=== PATIENT | female | born 1980 | race Caucasian/White ===

== ENCOUNTER 2018-07-16 10:49 | Emergency (ER) | payer BC, SELFPAY ==
[2018-07-16 10:50] VITALS: BP 158/84; PULSE 74; RESP 18; TEMP 36.6; O2SAT 100; BMI 24.2
--- NOTE | 2018-07-16 11:29 | CT_ITS ---
STUDY: CT BRAIN WITHOUT CONTRAST REASON FOR EXAM: Female, 38 years old. Lightheadedness. Near syncope. RADIATION DOSAGE (If Supplied By Facility): CTDIvol = ( 44.99 ) mGy, DLP = ( 745.49 ) mGycm TECHNIQUE: Transaxial CT imaging of the brain was performed without administration of intravenous contrast material. Individualized dose optimization techniques were used for this CT. COMPARISON: None. FINDINGS: Normal soft tissue structures. Normal calvarium. Normal size ventricles and extra-axial spaces for the patient's age. Normal white matter tracts of the cerebral hemispheres. Normal basal ganglia and thalami. Normal brainstem. Normal cerebellum. There is no intracranial hemorrhage. There are no findings of an acute ischemic infarction. Normal visualized paranasal sinuses. CT/Brain/Head without Contrast IMPRESSION: Normal unenhanced CT scan of the brain. Electronically Signed: Rober Norman MD at 13:31 EST Tel [phone], Service support ,
--- NOTE | 2018-07-16 11:29 | EKG12_ITS ---
Test Reason : DIZZINESS Blood Pressure : / mmHG Vent. Rate : 066 BPM Atrial Rate : 066 BPM P-R Int : 132 ms QRS Dur : 090 ms QT Int : 394 ms P-R-T Axes : 042 016 027 degrees QTc Int : 413 ms Normal sinus rhythm Normal ECG Confirmed by JUANCARLOS ANDERSON MD ([id number]), proposal editor GASPER QUEZADA ([id number] on 07/20/2018 2:32:31 PM Referred By: [email or web address] Confirmed By:JUANCARLOS ANDERSON MD
--- NOTE | 2018-07-16 11:31 | ED.VISSUMM ---
- ER Visit Summary Date of Service: 07/16/18 Chief Complaint: Lightheadedness and near syncope History of Present Illness: The patient is a 38 F no significant past medical history. Patient states the last 6 months she is just not felt well. He is currently working her up and she had a positive SUNI and a positive Rocco-Ordaz but she is has not seen infectious disease specialist yet. Denies any significant past medical history. States today she had some nausea and felt like she was spinning and lightheaded and that she might pass out. Denies any chest pain. No shortness of breath. No palpitations. No vomiting, diarrhea or. No fever. No dysuria. She said she has not had symptoms like this. She has had no recent admission. Physical Examination: Well-appearing female. Vital signs are stable afebrile. Her blood pressure is 158/84 heart rate 74 and pulse ox 100%. She does not look septic or toxic. No distress. HEENT exam normal. Pupils round reactive light. Moist weeks membranes. No facial droop. Normal speech. No signs of trauma. Neck nontender no lymphadenopathy. Lungs clear to auscultation bilaterally. Heart regular rate and rhythm no murmur. Abdomen soft nontender. Normal bowel sounds no peritoneal signs. Strength is moves all 4. Neurovascular intact. 5 out of 5 motor strength. Dorsi and plantar flexion intact. NIH is 0. Fingertip to nose and heel to ahumada within normal limits. Back nontender. Skin unremarkable. No rashes. Test Results: CBC normal. BMP normal. Normal creatinine and gap. EKG normal. Sinus rhythm rate of 66 no acute signs of [place] or ischemia. No dysrhythmia. CT of her brain showed no acute abnormality read by the radiologist and reviewed by me. Emergency Department Course and Treatment: Patient has a normal physical exam. Treatment Plan: Repeat exam patient is doing well at 1340. Exam is unchanged. I discussed all test results with her and her and her female friend at bedside. She will follow-up with her workup is in progress. Disposition: Discharge Impression: Near syncope of uncertain etiology This note was generated with Dr. Zation software. It may contain incorrect words, spelling, and punctuation that were not noted in review of the chart prior to signing ED Disposition - Plan for ED Patient: Chief Complaint: Dizziness Referrals: Florin Gongora DO [Primary Care Provider] -
--- NOTE | 2018-07-16 11:34 | ED.DCSUM_ITS ---
- ER Visit Summary Date of Service: 07/16/18 Chief Complaint: Lightheadedness and near syncope History of Present Illness: The patient is a 38 F no significant past medical history. Patient states the last 6 months she is just not felt well. He is currently working her up and she had a positive SUNI and a positive Rocco-Ordaz but she is has not seen infectious disease specialist yet. Denies any significant past medical history. States today she had some nausea and felt like she was spinning and lightheaded and that she might pass out. Denies any chest pain. No shortness of breath. No palpitations. No vomiting, diarrhea or. No fever. No dysuria. She said she has not had symptoms like this. She has had no recent admission. Physical Examination: Well-appearing female. Vital signs are stable afebrile. Her blood pressure is 158/84 heart rate 74 and pulse ox 100%. She does not look septic or toxic. No distress. HEENT exam normal. Pupils round reactive light. Moist weeks membranes. No facial droop. Normal speech. No signs of trauma. Neck nontender no lymphadenopathy. Lungs clear to auscultation bilaterally. Heart regular rate and rhythm no murmur. Abdomen soft nontender. Normal bowel sounds no peritoneal signs. Strength is moves all 4. Neurovascular intact. 5 out of 5 motor strength. Dorsi and plantar flexion intact. NIH is 0. Fingertip to nose and heel to ahumada within normal limits. Back nontender. Skin unremarkable. No rashes. Test Results: CBC normal. BMP normal. Normal creatinine and gap. EKG normal. Sinus rhythm rate of 66 no acute signs of [place] or ischemia. No dysrhythmia. CT of her brain showed no acute abnormality read by the radiologist and reviewed by me. Emergency Department Course and Treatment: Patient has a normal physical exam. Treatment Plan: Repeat exam patient is doing well at 1340. Exam is unchanged. I discussed all test results with her and her and her female friend at bedside. She will follow-up with her workup is in progress. Disposition: Discharge Impression: Near syncope of uncertain etiology This note was generated with On[employer]ation software. It may contain incorrect words, spelling, and punctuation that were not noted in review of the chart prior to signing ED Disposition - Plan for ED Patient: Chief Complaint: Dizziness Referrals: Florin Gongora DO [Primary Care Provider] -
[2018-07-16 12:02] LABS: Absolute Lymphocyte Count 1.69 X10^3/ul (0.83-4.51); Absolute Neutrophil Count 4.6 X10^3/uL (2.0-7.7); Basophil# 0.01 X10^3/uL; Basophil% 0.1 % (0-1); Eosinophil# 0.03 X10^3/uL; Eosinophils% 0.4 % (0-5); Hematocrit 41.7 % (37-47); Hemoglobin 13.6 g/dl (12.0-15.0); Lymphocyte # 1.69 X10^3/ul (4.0); Lymphocyte % 24.6 % (19-41); Mean Corp Hgb Conc 32.6 g/gl (32-36); Mean Corpuscular Hgb 29.7 pg (27.0-32.0); Monocyte# 0.51 X10^3/uL; Monocyte% 7.4 % (0-10); Neutrophil # 4.62 X10^3/uL (2.7-7.7); Neutrophil % 67.5 % (47-70); Platelet Count 171 K/mm3 (150-450); RBC Distribution Width CV 12.4 % (11.6-14.6); RBC Distribution Width SD 41.4 fl (35.1-43.9); Red Blood Count 4.58 M/mm3 (4.2-5.4); White Blood Count 6.9 K/mm3 (4.4-11.0)
[2018-07-16 12:08] LABS: POSITIVE COUNT NO; POSITIVE DIFFERENTIAL NO; POSITIVE MORPHOLOGY NO
[2018-07-16 12:12] LABS: Anion Gap 8 (5-15); BUN 17 mg/dL (7-18); BUN/Creat Ratio 20.5 RATIO (10-20); Calcium,Total 8.9 mg/dL (8.5-10.1); Chloride 107 mmol/L (98-107); Creatinine, Serum 0.83 mg/dL (0.55-1.02); EST Glomerular Filtration Rate 82 mL/min (>60); Est Glom Filt Rate - Afr Amer 100 mL/min (>60); Estimated Creatinine Clearance 87.72 ml/min; Glucose 84 mg/dL (74-106); Potassium 4.2 mmol/L (3.5-5.1); Sodium Level 142 mmol/L (136-145)
[2018-07-16 13:24] VITALS: BP 121/86; BP 128/93; BP 141/84; PULSE 69; PULSE 70; PULSE 82
[2018-07-16 13:39] VITALS: BP 129/80; PULSE 77; RESP 16; O2SAT 97
--- NOTE | 2018-07-16 13:49 | ED.DEP ---
ED Disposition - Plan for ED Patient: Disposition: Home or Assisted Living Chief Complaint: Dizziness Instructions: ED Near Syncope Unkn Referrals: Florin Gongora DO [Primary Care Provider] - As Needed Additional Instructions: Follow-up with your outpatient workup.
[2018-07-16 14:05] VITALS: BP 134/86; PULSE 74; RESP 13; O2SAT 98
== END 2018-07-16 14:11 | disposition home or self-care (01) ==
PROVIDERS: Emergency Provider Emergency Medicine; Family Provider Student in an Organized Health Care Education/Training Program; PCP Student in an Organized Health Care Education/Training Program
DX: R55 Syncope and collapse (principal)
CPT/HCPCS: 70450; 80048; 85025; 93005; 99285; A4216

== ENCOUNTER → 2018-10-08 12:15 | Outpatient (CLI) | payer BC, SELFPAY ==
[2018-07-30 11:42] VITALS: BMI 24.2
--- NOTE | 2018-10-08 12:23 | RAD_ITS ---
STUDY: X-RAY - CERVICAL SPINE REASON FOR EXAM: Female, 38 years old. Increasing neck pain TECHNIQUE: 6 view(s) of the cervical spine were obtained. COMPARISON: None FINDINGS: There are small spurs from the posterior inferior corners of C4 and C5 above the disc spaces are well maintained and there is normal alignment and curvature of the spine. There are no acute fractures. The prevertebral soft tissues are normal. The intervertebral foramen are all patent. RAD/Cerv Spine 4 or 5 Views IMPRESSION: The study is normal except for small spurs from the posterior inferior corners of C4-C5. All. The intervertebral foramina are patent Electronically Signed: Yfn Romero MD at 4:07 EST Tel , Service support ,
== END ==
PROVIDERS: Family Provider Student in an Organized Health Care Education/Training Program; PCP Student in an Organized Health Care Education/Training Program; Referring Provider Internal Medicine; Visit Provider Internal Medicine
DX: M54.2 Cervicalgia (principal)
CPT/HCPCS: 72050

== ENCOUNTER → 2018-10-15 16:13 | Outpatient (CLI) | payer BC, SELFPAY ==
[2018-07-30 11:42] VITALS: BMI 24.2
--- NOTE | 2018-10-15 16:22 | MRI_ITS ---
STUDY: MRI THORACIC SPINE WITHOUT CONTRAST REASON FOR EXAM: Female, 38 years old. Chronic back pain. TECHNIQUE: Standardized fat and water weighted pulse sequences were obtained in the sagittal and axial planes. COMPARISON: None. FINDINGS: Normal kyphosis of the thoracic spine. There is no substantial scoliosis. T2-3: Small, central, noncompressive disc protrusion. T5-6: Small, central, noncompressive disc protrusion. Remaining levels show no evidence of disc protrusion or canal stenosis. T1-2, T2-3, T3-4, T4-5, T5-6, T6-7, T7-8, T8-9, T9-10, T10-11, T11-12: Normal endplates. Normal disc hydration, heights and morphology of the corresponding intervertebral discs. Normal intervertebral neural foramina at the corresponding levels. Normal visualized thoracic cord. Normal conus medullaris that terminates at the T12 level.. The soft tissue structures are unremarkable. MRI/Spine Thoracic (Routine) IMPRESSION: Noncompressive disc protrusions at T2-3 and T5-6, otherwise negative study. Electronically Signed: Andreia Dixon MD at 22:39 EST Tel , Service support ,
== END ==
PROVIDERS: Family Provider Internal Medicine; PCP Internal Medicine; Referring Provider Internal Medicine; Visit Provider Internal Medicine
DX: M54.6 Pain in thoracic spine (principal)
CPT/HCPCS: 72146

== ENCOUNTER → 2018-12-01 | Outpatient (CLI) | payer BC, SELFPAY ==
[2018-07-30 11:42] VITALS: BMI 24.2
--- NOTE | 2018-12-01 17:50 | CT_ITS ---
STUDY: CT ABDOMEN AND PELVIS WITH CONTRAST REASON FOR EXAM: Female, 38 years old. Upper abdominal pain x10 months, lower abdominal pain x3 months RADIATION DOSAGE (If Supplied By Facility): CTDIvol = ( 13.65 ) mGy, DLP = ( 555.64 ) mGycm TECHNIQUE: Transaxial images were obtained from the dome of the diaphragm to the symphysis pubis with oral contrast. 100mL IV/Oral Isovue 300 was administered. Sagittal and coronal images were reconstructed. Individualized dose optimization techniques were used for this CT. COMPARISON: None. FINDINGS: The visualized lung bases are unremarkable. The visualized portions of the heart are within normal limits. Normal liver. Normal gallbladder and extrahepatic biliary system. Normal spleen. Normal pancreas. Normal bilateral adrenal glands. Normal right kidney. Normal left kidney. There is a large amount of food in the stomach. Normal small intestine. Normal colon. The appendix is visualized and appears normal. Normal abdominal aorta. Normal inferior vena cava. Normal retroperitoneum. Normal urinary bladder. Uterus and ovaries appear normal. There is a small umbilical hernia containing fat. Normal osseous structures. CT/Abdomen/Pelvis WITH Contrast IMPRESSION: Small fat-containing umbilical hernia. The study is otherwise unremarkable. There is no evidence of free intra-abdominal or intrapelvic air, fluid, or inflammatory process. Electronically Signed: Carrington Dong MD at 17:43 EDT , Service support ,
== END | disposition home or self-care (01) ==
LOC: CT 17:46
PROVIDERS: Family Provider Internal Medicine; PCP Internal Medicine; Referring Provider Internal Medicine; Visit Provider Internal Medicine
DX: R10.84 Generalized abdominal pain (principal)
CPT/HCPCS: 74177; Q9967

== ENCOUNTER → 2018-12-11 | Outpatient (CLI) | payer BC, SELFPAY ==
[2018-07-30 11:42] VITALS: BMI 24.2
--- NOTE | 2018-12-11 08:54 | NM_ITS ---
CLINICAL: 38-year-old female with reported history of abdominal pain. SEMI-SOLID PHASE 99m Tc SULFUR COLLOID GASTRIC EMPTYING STUDY COMPARISON: CT of the abdomen-pelvis report 12/01/2018 FINDINGS: The patient was administered 1.0 mCi of 99m Tc sulfur colloid mixed with oatmeal and consumed per os. Image acquisitions in the anterior-posterior projections for a total of 60 minutes. There is prompt visualization of the stomach. There is no gastroesophageal reflux identified. The T1/2 linear fit was calculated to be 33.9 minutes, (Normal: 12-56 minutes). NM/Gastric Emptying Study IMPRESSION: 1. NORMAL 99m Tc sulfur colloid semi-solid phase (oatmeal) gastric emptying imaging examination. A. There is normal and preserved semi-solid phase gastric emptying compared to normal controls with maintained first order kinetics throughout all components of the examination. (Sylvain et al, J Nucl Med Tech 38: 186, 2010). Electronically Signed: Fracisco Zheng DO at 22:50 EDT Tel , Service support ,
== END | disposition home or self-care (01) ==
LOC: NM 08:51
PROVIDERS: Family Provider Internal Medicine; PCP Internal Medicine; Referring Provider Internal Medicine; Visit Provider Internal Medicine
DX: R10.13 Epigastric pain (principal)
CPT/HCPCS: 78264; A9541

== ENCOUNTER → 2019-01-15 | Outpatient (CLI) | payer BC, SELFPAY ==
[2018-07-30 11:42] VITALS: BMI 24.2
--- NOTE | 2019-01-15 16:02 | RAD_ITS ---
STUDY: X-RAY - LUMBAR SPINE REASON FOR EXAM: Female, 38 years old. History of recent fall. TECHNIQUE: 5 view(s) of the lumbar spine were obtained. COMPARISON: None FINDINGS: Normal lumbar lordosis. There is no substantial scoliosis. There is a normal alignment of the vertebrae. Normal vertebral bodies and endplates. Normal disc space heights. There is no demonstrated fracture. There is no demonstrated spondylolysis of the pars interarticulares. The soft tissue structures are unremarkable. RAD/L/S Spine Min 4 Views IMPRESSION: No demonstrated acute fracture. If symptoms persist, CT scan the pelvis might be of further value. Electronically Signed: James Peacock MD at 14:40 EDT Tel , Service support ,
== END | disposition home or self-care (01) ==
LOC: MTRAD 16:00
PROVIDERS: Family Provider Internal Medicine; PCP Internal Medicine; Referring Provider Internal Medicine; Visit Provider Internal Medicine
DX: M54.5 Low back pain (principal); W19.XXXA Unspecified fall, initial encounter
CPT/HCPCS: 72110

== ENCOUNTER → 2019-01-25 | Outpatient (CLI) | payer BC, SELFPAY ==
[2018-07-30 11:42] VITALS: BMI 24.2
--- NOTE | 2019-01-25 10:35 | RAD_ITS ---
STUDY: X-RAY - SACRUM/COCCYX REASON FOR EXAM: Female, 38 years old. Fall. Tailbone pain. TECHNIQUE: 3 view(s) of the sacrum and coccyx were obtained. COMPARISON: None. FINDINGS: Normal bilateral sacroiliac joints. Normal visualized sacral ala and fused sacral bodies. Normal sacrococcygeal junction with a normal angulation. Normal coccygeal segments. The presacral soft tissue structures are unremarkable. RAD/Sacrum-Coccyx min 2 Views IMPRESSION: No evidence of definitive acute fracture or dislocation. Electronically Signed: Jamel Hernadez DO at 23:17 EDT , Service support ,
== END | disposition home or self-care (01) ==
LOC: HPRAD 10:33
PROVIDERS: Family Provider Internal Medicine; PCP Internal Medicine; Referring Provider Internal Medicine; Visit Provider Internal Medicine
DX: M53.3 Sacrococcygeal disorders, not elsewhere classified (principal)
CPT/HCPCS: 72220

== ENCOUNTER → 2019-01-27 | Outpatient (CLI) | payer BC, SELFPAY ==
[2018-07-30 11:42] VITALS: BMI 24.2
--- NOTE | 2019-01-27 06:58 | CT_ITS ---
STUDY: CT PELVIS WITHOUT CONTRAST REASON FOR EXAM: Female, 38 years old. Coccygeal pain following a fall. RADIATION DOSAGE (If Supplied By Facility): CTDIvol = ( 12.62 ) mGy, DLP = ( 365.60 ) mGycm TECHNIQUE: Transaxial imaging of the pelvis was performed with oral contrast, and without intravenous administration of contrast material. Multiplanar coronal and sagittal images were reformatted. Individualized dose optimization techniques were used for this CT. COMPARISON: None. FINDINGS: Normal urinary bladder. Normal visualized small intestine. Normal visualized colon. There is no pelvic fluid. There is no pelvic mass lesion or lymphadenopathy. Normal visualized pelvic arteries. Small umbilical hernia containing fat. Partial sacralization of the transverse process of the L5 vertebrae on the right side. Mild degree of diffuse posterior disc bulge at the L4-L5 level. CT/Pelvis without IV Contrast IMPRESSION: Partial sacralization of the transverse process of the L5 vertebra on the right side. Diffuse posterior disc bulge at the L4-L5 level. Electronically Signed: Rober Norman, at 15:32 EDT , Service support ,
== END | disposition home or self-care (01) ==
LOC: CT 06:57
PROVIDERS: Family Provider Internal Medicine; PCP Internal Medicine; Referring Provider Internal Medicine; Visit Provider Internal Medicine
DX: M53.3 Sacrococcygeal disorders, not elsewhere classified (principal)
CPT/HCPCS: 72192

== ENCOUNTER → 2019-03-19 09:13 | Outpatient (CLI) | payer BC, SELFPAY ==
[2018-07-30 11:42] VITALS: BMI 24.2
--- NOTE | 2019-03-19 09:20 | RAD_ITS ---
STUDY: X-RAY - ESOPHAGUS (BARIUM SWALLOW) WITH FLUOROSCOPY REASON FOR EXAM: Female, 39 years old. Mid chest pain. Heartburn. TECHNIQUE: 18 view(s) of the esophagus were obtained following swallowing of barium. FLUOROSCOPY TIME (if supplied): (0:53) minutes/seconds COMPARISON: None. FINDINGS: There is no demonstrated esophageal foreign body. There is no demonstrated stricture or mucosal abnormality. Normal gastroesophageal junction, without a demonstrated hiatal hernia. The patient ingested a 12 mm tablet of barium without any difficulty. Normal visualized aortic arch and descending thoracic aorta. Normal visualized pulmonary parenchyma. Normal visualized osseous structures of the thorax. RAD/Esophagus Only IMPRESSION: Normal plain film x-ray examination (barium swallow) of the esophagus. Electronically Signed: Rober Norman, at 13:11 EDT , Service support ,
== END ==
PROVIDERS: Family Provider Internal Medicine; PCP Internal Medicine; Referring Provider Internal Medicine; Visit Provider Internal Medicine
DX: K21.9 Gastro-esophageal reflux disease without esophagitis (principal); R13.10 Dysphagia, unspecified
CPT/HCPCS: 74220

== ENCOUNTER 2019-05-07 08:30 | Outpatient (RCR) | payer BC, SELFPAY ==
[2018-07-30 11:42] VITALS: BMI 24.2
--- NOTE | 2019-01-18 13:32 | HP.PTEVAL ---
Patient's Visit Information MELISSA KENNEY is a 38 year old F referred to Physical Therapy by Lucila Vincent DO with a diagnosis of Cervical, thoracic, lumbar pain and dizziness. Date of Evaluation: 01/18/19 Physical Therapist: Arnold Meehan DPT - Visit Plan Frequency: 2x /Week Duration: 4 Weeks Plan: Start with thoracic ROM, core stability exercises. Pt. has trialed DN, US and other modalities without success. Progress as tolerated. - Subjective Findings: Pt. is here today for her initial evaluation with diagnosis of cervcial, thoracic, lumbar pain and dizziness. Pt. reports having increased symptos for ~1year. Pt. reports no mechanism of injury, but believes that all of her symptoms might he related to her getting shingles early in life then a recent ear infection that stemmed everything up. Pt. reports having kay in her face at times, in cervical spine, thoracic spine and in her lumbar spine. Pt. also reports having numbness in BLEs and R arm. Pt's biggest complain is of her thoracic spine that wraps around to her upper adbomen, just below her sternum. Pt. reports having a multitude of testing including gastro, MRI, rheumatology and now neuro. Pt. reports being frustrated with lack of progression on her pathology. Pt. is hopeful to reduce symptoms in order to get back to all recreational working out without symptoms. - Pain Cervical spine Pain Intensity (Out of 10): 1 Pain Intensity Range: 0, 2 Thoracic spine Pain Intensity (Out of 10): 3 Pain Intensity Range: 1, 6 Lumbar spine Pain Intensity (Out of 10): 2 Pain Intensity Range: 1, 6 - Objective POSTURE: Pt. has slight FH posture, slight thoracic kyphosis, normal pelvic positioning. PALPATION: Pt. has tenderness along throacic erector spinea R worse than L. Pt. has increased tenderness with spring testing of T3-T7 (hypomobility) noted as well. Pt. has no pain with lumbar palpation or sping testing. NEURO: normal sensation and DTR bilaterally. Pt. reports numbness in BLEs, but normal sensation with palpation (light and sharp touch). Pt. reports they just feel like my legs are going to exploid.. ROM: cervical spine- hypombility with ext and rotation R. Thoracic spine- mod loss with bilat rotation and ext. Lumbar spine- mild loss with extension. Pt. has increased pain iwth end range of ROM testing. MMT: BLEs- 5-/5 throughout; core strength- fair-. - Special Tests C/S Radiculapathy - Left Upper limb tension test: Negative C/S Radiculapathy - Right Upper limb tension test: Negative C/S Radiculapathy - Left [place]: Negative C/S Radiculapathy - Right [place]: Negative C/S Radiculapathy - Left Cervical distraction: Negative C/S Radiculapathy - Right Cervical distraction: Negative Cervical Sitting: Protrusion - Mechanical Response: No effect Cervical Sitting: Protrusion - Symptoms During Testing: No effect Cervical Sitting: Protrusion - Symptoms After Testing: No effect Cervical Sitting: Retraction - Mechanical Response: No effect Cervical Sitting: Retraction - Symptoms During Testing: No effect Cervical Sitting: Retraction - Symptoms After Testing: No effect Cervical Sitting: Retraction-Extension - Mechanical Response: No effect Cerv Sitting: Retraction-Extension - Symptoms During Testing: Increases Cerv Sitting: Retraction-Extension - Symptoms After Testing: No worse Cervical Sitting: Sidebend Right - Mechanical Response: No effect Cervical Sitting: Sidebend Right - Symptoms During Testing: No effect Cervical Sitting: Sidebend Right - Symptoms After Testing: No effect Cervical Sitting: Sidebend Left - Mechanical Response: No effect Cervical Sitting: Sidebend Left - Symptoms During Testing: No effect Cervical Sitting: Sidebend Left - Symptoms After Testing: No effect Cervical Sitting: Rotation Right - Mechanical Response: No effect Cervical Sitting: Rotation Right - Symptoms During Testing: Increases Cervical Sitting: Rotation Right - Symptoms After Testing: No worse Cervical Sitting: Rotation Left - Mechanical Response: No effect Cervical Sitting: Rotation Left - Symptoms During Testing: No effect Cervical Sitting: Rotation Left - Symptoms After Testing: No effect Cervical Sitting: Flexion - Mechanical Response: No effect Cervical Sitting: Flexion - Symptoms During Testing: No effect Cervical Sitting: Flexion - Symptoms After Testing: No effect L/S Slump test left side: Negative L/S Slump test right side: Negative L/S Left Straight Leg Raise: Negative L/S Right Straight Leg Raise: Negative L/S Instability PA Test: Negative L/S Prone Instability Test: Negative Lumbar Standing: Flexion - Mechanical Response: No effect Lumbar Standing: Flexion - Symptoms During Testing: No effect Lumbar Standing: Flexion - Symptoms After Testing: No effect Lumbar Standing: Extension - Mechanical Response: No effect Lumbar Standing: Extension - Symptoms During Testing: Increases Lumbar Standing: Extension - Symptoms After Testing: No worse Lumbar Standing: Right Side Glides - Mechanical Response: No effect Lumbar Standing: Right Side [place] - Symptoms During Testing: No effect Lumbar Standing: Right Side [place] - Symptoms After Testing: No effect Lumbar Standing: Left Side [place] - Mechanical Response: No effect Lumbar Standing: Left Side [place] - Symptoms During Testing: No effect Lumbar Standing: Left Side [place] - Symptoms After Testing: No effect - Goals Goal 1:: Pt. to be I with HEP. Goal Time Frame: 4-6 Weeks Goal 2:: Pt. to have increased thoracic ROM to full without increase in symptoms. Goal Time Frame: 4-6 Weeks Goal 3:: Pt. to complete all ADLs without increase in symptoms. Goal Time Frame: 4-6 Weeks Goal 4:: Pt. to complete all gym exercises without increase in symptoms. Goal Time Frame: 4-6 Weeks Goal 5:: Pt. to sleep throughout the night without incraese in symptoms. - Rehabilitation Potential Physical Therapy Diagnosis: Pt. has signs and symptoms consistent this back pain throughout spine. Pt. has increased symptoms with end range of motion. Pt. would benefit from PT to increase thoracic ROM and core stability to reduce stress applied to thoracic spine with all functional mobility. Rehabilitation Potential: Good - Anticipated Interventions Patient/Client Instruction: Educate patient on: Condition, Plan of Care, Risk Factors, Benefits of Fitness Program For the Purpose of:: To improve safety, To improve health and function, To foster healthy habits, To improve decision making, To facilitate caregiver knowledge, To improve self management, To prevent re-injury, To improve ability to perform tasks related to life management, To improve tolerance to ADL's Therapeutic Exercise to Include: Strength training, Power training, Endurance training, Body mechanics, Postural training, Flexibilty training, Passive ROM, Active ROM, Dynamic Lumbar Stabilization, Melchor Exercises, Scapular Strength/Stabilization For the Purpose of:: To decrease pain, To decrease swelling/inflammation, To increase ROM, To improve nutrient delivery to tissue, To increase oxygenation perfusion, To improve muscle performance and motor function, To improve ability to perform ADL's Manual Therapy Techniques to Include: Mobilization, Passive ROM, Functional dry needling, Soft tissue mobilization For the Purpose of:: To decrease pain, To decrease swelling/inflammation, To increase ROM IF ES: Yes Cryotherapy (ice pack, ice massage): Yes Thermo therapy (hot pack): Yes Ultrasound (thermal/non thermal): Yes For the Purpose of:: To decrease pain, To decrease swelling/inflammation, To increase ROM, To improve nutrient delivery to tissue, To increase oxygenation perfusion, To improve muscle performance and motor function Thank you for the opportunity to evaluate your patient. For Medicare and Medicare HMO plans, please review the plan of care and approve it. It will need to be FAXED BACK to us at [phone] for Medicare purposes. For Medicare only, by signing this I certify the plan of care. Please let me know if there are questions or concerns regarding this plan of care. Physician Signature: Date:
--- NOTE | 2019-04-26 07:50 | HP.PTREVAL_ITS ---
Lucila Vincent, DO, It has been my pleasure to treat MELISSA KENNEY over the last 9 visits for Cervical, thoracic, lumbar pain and dizziness. Please see the progress note below for an update on the physical therapy plan of care! Subjective: Pt. reprots being 50% better overall. Pt. reports having pain in her thoracic spine, but having days with minimal pain as well. Pt. reports being HEP compliant. Objective/Function: ROM: lumbar spine- full ROM, mild increase NW with extension. Thoracic spine: flexion nil loss- mild increase NW, ext min/nil loss mild increase NW, rotaton nil loss NE. MMT: 5/5 throughout, NE. Core strength- fair. Pt. continues to be tender alonog R side of thoracic erector spinea throughout, bu worse in throacic region. Plan Plan: Pt. has good ROM and strength at this point intime. Her tissue of her thoracic erector spinea on her R side contines to be very tender. Pt. has had decrease in symptoms with modalitues and manual activities. Pt would beneift from contiunued PT working on stability exercises, reduction in tissue irritability and body mechancis. Goals Goal 1:: Pt. to be I with HEP. Goal Time Frame: 4-6 Weeks Goal Progress: Goal Met Goal 2:: Pt. to have increased thoracic ROM to full without increase in symptoms. Goal Time Frame: 4-6 Weeks Goal Progress: Goal Met Goal 3:: Pt. to complete all ADLs without increase in symptoms. Goal Time Frame: 4-6 Weeks Goal Progress: Progressing Goal 4:: Pt. to complete all gym exercises without increase in symptoms. Goal Time Frame: 4-6 Weeks Goal Progress: Progressing Goal 5:: Pt. to sleep throughout the night without incraese in symptoms. Goal Progress: Goal Met Anticipated Interventions Patient/Client Instruction: Educate patient on: Condition, Plan of Care, Risk Factors, Benefits of Fitness Program For the Purpose of:: To improve safety, To improve health and function, To foster healthy habits, To improve decision making, To facilitate caregiver knowledge, To improve self management, To prevent re-injury, To improve ability to perform tasks related to life management, To improve tolerance to ADL's Therapeutic Exercise to Include: Strength training, Power training, Endurance training, Body mechanics, Postural training, Flexibilty training, Passive ROM, Active ROM, Dynamic Lumbar Stabilization, Melchor Exercises, Scapular Strength/Stabilization For the Purpose of:: To decrease pain, To decrease swelling/inflammation, To increase ROM, To improve nutrient delivery to tissue, To increase oxygenation perfusion, To improve muscle performance and motor function, To improve ability to perform ADL's Manual Therapy Techniques to Include: Mobilization, Passive ROM, Functional dry needling, Soft tissue mobilization For the Purpose of:: To decrease pain, To decrease swelling/inflammation, To increase ROM IF ES: Yes Cryotherapy (ice pack, ice massage): Yes Thermo therapy (hot pack): Yes Ultrasound (thermal/non thermal): Yes For the Purpose of:: To decrease pain, To decrease swelling/inflammation, To increase ROM, To improve nutrient delivery to tissue, To increase oxygenation perfusion, To improve muscle performance and motor function Please do not hesitate to contact me at [phone] by phone or Fax: if you have questions or concerns regarding this new plan of care! Sincerely, Arnold Meehan DPT
--- NOTE | 2019-08-05 07:28 | HP.PT.NRP ---
HP - Discharge Summary (1) - Patient Information MELISSA KENNEY was seen in my office for initial evaluation on 01/18/19. The following Plan of Care was established for this patient: Initial Frequency: 2x /Week Initial Duration: 4 Weeks - Anticipated Interventions Patient/Client Instruction: Educate patient on: Condition, Plan of Care, Risk Factors, Benefits of Fitness Program For the Purpose of:: To improve safety, To improve health and function, To foster healthy habits, To improve decision making, To facilitate caregiver knowledge, To improve self management, To prevent re-injury, To improve ability to perform tasks related to life management, To improve tolerance to ADL's Therapeutic Exercise to Include: Strength training, Power training, Endurance training, Body mechanics, Postural training, Flexibilty training, Passive ROM, Active ROM, Dynamic Lumbar Stabilization, Melchor Exercises, Scapular Strength/Stabilization For the Purpose of:: To decrease pain, To decrease swelling/inflammation, To increase ROM, To improve nutrient delivery to tissue, To increase oxygenation perfusion, To improve muscle performance and motor function, To improve ability to perform ADL's Manual Therapy Techniques to Include: Mobilization, Passive ROM, Functional dry needling, Soft tissue mobilization For the Purpose of:: To decrease pain, To decrease swelling/inflammation, To increase ROM IF ES: Yes Cryotherapy (ice pack, ice massage): Yes Thermo therapy (hot pack): Yes Ultrasound (thermal/non thermal): Yes For the Purpose of:: To decrease pain, To decrease swelling/inflammation, To increase ROM, To improve nutrient delivery to tissue, To increase oxygenation perfusion, To improve muscle performance and motor function This patient was last seen in our office 05/07/19. Pertinent comments regarding their Physical therapy will appear below: Pt. was seen for her thoracic and cervical spine pain. Pt. was progressing with activity modification and modalities. Pt. has not been seen in several months and will be DC from PT at this point in time. At this point I will be discontinuing this patient from physical therapy. I would be happy to see this patient again in the future if found appropriate by the physician. Thank you! Arnold Meehan, SUELLENT
== END 2019-05-07 17:00 | disposition home or self-care (01) ==
LOC: PT 08:30
PROVIDERS: Family Provider Internal Medicine; PCP Internal Medicine; Visit Provider Internal Medicine
DX: M54.2 Cervicalgia (principal); M54.6 Pain in thoracic spine; M54.5 Low back pain; R42 Dizziness and giddiness; G43.909 Migraine, unspecified, not intractable, without status migrainosus
CPT/HCPCS: 97035; 97110; 97140; 97161; 97530

== ENCOUNTER → 2019-08-10 12:07 | Outpatient (CLI) | payer BC, SELFPAY ==
[2018-07-30 11:42] VITALS: BMI 24.2
--- NOTE | 2019-08-10 12:12 | RAD_ITS ---
STUDY: X-RAY CHEST REASON FOR EXAM: Female, 39 years old. COUGH, CONGESTION TECHNIQUE: PA and lateral views of the chest. COMPARISON: None. FINDINGS: The lungs are clear and expanded. There is no demonstrated pleural abnormality. Normal size heart. Normal mediastinum and elke. Normal visualized pulmonary arteries. Normal visualized aortic arch and descending thoracic aorta. Normal visualized thoracic spine. Normal visualized ribs, clavicles, and shoulders. There is no demonstrated abnormality of the visualized soft tissue structures of the upper abdomen. RAD/Chest PA and Lateral IMPRESSION: Normal x-ray examination of the chest. Electronically Signed: Bucky Flores MD ([place]) at 16:27 EST , Service support ,
== END ==
PROVIDERS: Family Provider Internal Medicine; PCP Internal Medicine; Referring Provider Internal Medicine; Visit Provider Internal Medicine
DX: R05 Cough (principal); R50.9 Fever, unspecified
CPT/HCPCS: 71046

== ENCOUNTER → 2019-11-17 11:03 | Outpatient (CLI) | payer BC, SELFPAY ==
[2018-07-30 11:42] VITALS: BMI 24.2
[2019-11-17 12:11] LABS: Absolute Lymphocyte Count 1.34 X10^3/uL (0.83-4.51); Absolute Neutrophil Count 3.1 X10^3/uL (2.0-7.7); Basophil# 0.02 X10^3/uL; Basophil% 0.4 % (0-1); Eosinophil# 0.03 X10^3/uL; Eosinophils% 0.6 % (0-5); Hematocrit 40.5 % (37-47); Lymphocyte # 1.34 X10^3/ul (4.0); Lymphocyte % 27.1 % (19-41); Mean Corp Hgb Conc 32.1 g/dL (32-36); Mean Corpuscular Hgb 29.8 pg (27.0-32.0); Mean Corpuscular Volume 92.9 fL (81-99); Mean Platelet Vol. 11.5 fl (6.2-12.0); Monocyte# 0.45 X10^3/uL; Monocyte% 9.1 % (0-10); NRBC Flagged by Analyzer 0 % (0-5); Neutrophil # 3.09 X10^3/uL (2.7-7.7); Neutrophil % 62.6 % (47-70); Platelet Count 179 K/mm3 (150-450); RBC Distribution Width CV 11.9 % (11.6-14.6); RBC Distribution Width SD 40.5 fl (35.1-43.9); Red Blood Count 4.36 M/mm3 (4.2-5.4); White Blood Count 4.9 K/mm3 (4.4-11.0)
[2019-11-17 13:04] LABS: AST(SGOT) 13 U/L (15-37); Alanine Aminotransfer ALT/SGPT 17 U/L (13-56); Albumin, Serum 3.7 g/dL (3.2-5.0); Alkaline Phosphatase 53 U/L (45-117); Anion Gap 3 (5-15); BUN 18 mg/dL (7-18); BUN/Creat Ratio 20.4 RATIO (10-20); Calcium,Total 8.9 mg/dL (8.5-10.1); Chloride 109 mmol/L (98-107); Creatinine, Serum 0.88 mg/dL (0.55-1.02); EST Glomerular Filtration Rate 76 mL/min (>60); Est Glom Filt Rate - Afr Amer 92 mL/min (>60); Globulin 3.6 g/dL (2.2-4.2); Glucose 59 mg/dL (74-106); Potassium 3.6 mmol/L (3.5-5.1); Protein, Total 7.3 g/dL (6.4-8.2); Sodium Level 140 mmol/L (136-145)
[2019-11-17 14:21] LABS: Vitamin B12 315 pg/mL (211-911); Vitamin D,25 Hydroxy 23.6 ng/mL
== END ==
PROVIDERS: PCP Internal Medicine; Referring Provider Internal Medicine; Visit Provider Internal Medicine
DX: R53.83 Other fatigue (principal)
CPT/HCPCS: 36415; 80053; 82306; 82607; 84443; 85025

== ENCOUNTER → 2020-05-02 15:16 | Outpatient (CLI) | payer BC, SELFPAY ==
[2018-07-30 11:42] VITALS: BMI 24.2
--- NOTE | 2020-05-02 15:18 | BI_ITS ---
MAMMOGRAPHY - BILATERAL SCREENING REASON FOR EXAM: Female, 40 years old. Routine annual screening examination. PERTINENT HISTORY: Non-contributory. TECHNIQUE: Digital bilateral breast nely (3D mammographic acquisition) in the CC and MLO projections. 2-D mediolateral oblique (MLO) and craniocaudad (CC) views of both breasts were obtained. CAD: Full Field Digital Mammography with Computer Added Detection was performed. COMPARISON: None. Baseline examination. FINDINGS: Breast Composition: The breasts are heterogeneously dense, which may obscure small masses. There are no dominant masses or suspicious calcifications. No other significant abnormalities are identified. BI/SCREEN MAMM (CAD) W/NELY BILAT IMPRESSION: Negative screening mammogram. Yearly followup mammogram recommended. (A) ASSESSMENT CATEGORY: BIRADS Category 1: Negative. A letter regarding these results will be sent to the patient by the facility within 30 days. Approximately 10% of breast cancers are not detected by mammography. A normal mammogram should not delay biopsy of a clinically suspicious abnormality. [id number] Electronically Signed: Rober Norman, at 8:32 EDT , Service support ,
== END ==
PROVIDERS: PCP Internal Medicine; Referring Provider Internal Medicine; Visit Provider Internal Medicine
DX: Z12.31 Encounter for screening mammogram for malignant neoplasm of breast (principal)
CPT/HCPCS: 77063; 77067

== ENCOUNTER → 2020-12-05 08:12 | Outpatient (CLI) | payer BC, SELFPAY ==
[2018-07-30 11:42] VITALS: BMI 24.2
--- NOTE | 2020-12-05 08:30 | MRI_ITS ---
STUDY: MRI BRAIN WITH AND WITHOUT CONTRAST REASON FOR EXAM: Female, 40 years old. LEFT facial pain, tingling, burning, swelling -- trigeminal neuralgia TECHNIQUE: Standardized multiplanar fat and water weighted pulse sequences were obtained. IV 18ml Dotarem was administered for the contrast portion of the examination. COMPARISON: CT of the brain 07/16/2018 FINDINGS: Normal size of the ventricles and extra-axial spaces for the patient''s age. Normal white matter tracts of the supratentorial brain. Normal bilateral basal ganglia. Normal thalami. There is no extra-axial fluid accumulation. Normal flow voids within the major intracranial circulation suggesting patency by spin echo criteria. Normal venous enhancement. There is no enhancing intra-axial or extra-axial abnormality. Normal sella turcica, pituitary gland, infundibular stalk, optic chiasm and hypothalamus. Normal tectal plate and pineal gland. Normal midbrain, shawn and medulla. Normal cerebellum. Normal basal cisterns. Normal bilateral temporal bones. Normal bilateral internal auditory canals. No demonstrated orbital abnormality, within the constraints of a routine brain study. Normal visualized paranasal sinuses. Normal calvarium and skull base. Normal visualized soft tissue structures. Normal visualized upper cervical spine. MRI/Brain W/WO Contrast IMPRESSION: Normal unenhanced and enhanced MRI of the brain. Electronically Signed: Natanael Persaud MD at 16:39 EDT , Service support ,
== END ==
PROVIDERS: PCP Internal Medicine; Referring Provider Otolaryngology; Visit Provider Otolaryngology
DX: G50.0 Trigeminal neuralgia (principal); G50.1 Atypical facial pain
CPT/HCPCS: 70553; A9575

== ENCOUNTER → 2021-03-26 09:19 | Outpatient (CLI) | payer BC, SELFPAY ==
[2018-07-30 11:42] VITALS: BMI 24.2
--- NOTE | 2021-03-26 09:24 | US_ITS ---
STUDY: RENAL ULTRASOUND - COMPLETE REASON FOR EXAM: Female, 41 years old. UTI TECHNIQUE: Ultrasound evaluation of the kidneys was performed with real-time and static saenz-scale imaging. COMPARISON: None. FINDINGS: RIGHT KIDNEY: Normal location of the right kidney, which is normal in size. The right kidney measures 11.8 cm x 4.6 cm x 5.8 cm. There is a normal cortex of the right kidney. The renal cortex measures 2.2 cm. There is no right renal mass or cyst. There are no right renal calculi. There is no right hydronephrosis. DISTAL RIGHT URETER: There is non-visualization of the distal right ureter. There is no demonstrated right ureterovesical junction calculus. There is no demonstrated right ureteral jet. LEFT KIDNEY: Normal location of the left kidney, which is normal in size. The left kidney measures 9.9 cm x 4.8 cm x 5.4 cm. There is a normal cortex of the left kidney. The renal cortex measures 2.1 cm. There is no left renal mass or cyst. There are no left renal calculi. There is no left hydronephrosis. DISTAL LEFT URETER: There is non-visualization of the distal left ureter. There is no demonstrated left ureterovesical junction calculus. There is no demonstrated left ureteral jet. BLADDER: The distended urinary bladder has a volume of 289 ml. There is a normal wall thickness of the distended urinary bladder. There is no demonstrated mass within the urinary bladder. There are no demonstrated bladder calculi. US/Kidney and Bladder IMPRESSION: Normal ultrasound of the kidneys and urinary bladder. Electronically Signed: Rober Norman MD at 10:31 EDT , Service support ,
== END ==
PROVIDERS: PCP Internal Medicine; Referring Provider Urology; Visit Provider Urology
DX: N39.0 Urinary tract infection, site not specified (principal)
CPT/HCPCS: 76770

== ENCOUNTER → 2021-07-23 10:31 | Outpatient (CLI) | payer BC, SELFPAY ==
--- NOTE | 2021-07-23 11:25 | NEURO_ITS ---
NCS and/or EMG Patient Report Ordering Doctor: Lucila Vincent DATE OF SERVICE: 07/23/21 Indication: Acute onset of left arm numbness and weakness upon awakening from sleep six weeks ago. Since that time she has also developaed episodic pain traveling down the lateral aspect of the left arm. Evaluate for cervical radiculopathy and/or cervical radiculopathy. Findings: Nerve conduction studies were performed in the left upper extremity. The left median motor study recording the abductor pollicis brevis showed a normal amplitude, normal distal latency and normal conduction velocity. The left ulnar motor study recording the abductor digiti minimi showed a normal amplitude, normal distal latency and normal conduction velocity. No conduction block or focal slowing was present across the elbow. The left median sensory response recording digit two showed a normal amplitude, latency and conduction velocity. The left ulnar sensory response recording digit five showed a normal amplitude, latency and conduction velocity. The left radial sensory response recording over the extensor snuff box showed a normal ampl itude, latency and conduction velocity. Needle EMG of the left upper extremity and cervical paraspinal muscles was performed. No denervation was seen in any muscle. All motor unit morphology, activation and recruitment patterns were normal. Impression: This is a normal study. There is no electrophysiologic evidence of cervical radiculopathy in left upper extremity. In addition, there was no el ectrophysiologic evidence of median or ulnar entrapment neuropathy, or brachial plexopathy in the left upper extremity. Please note: the electrodiagnosis of radiculopathy is made on the basis of excl uding peripheral nerve lesions on nerve conduction studies and the needle EMG demonstrating denervation and/or reinnervation in the distribution of one or more nerve roots (i.e., acute and/or chronic axonal loss). Thus, electrodiagnostic studies are insensitive in detecting radiculopathy in the absence of axonal loss (e.g., in the setting of compression resulting in intermittent ischemia or mechanical deformation; or demyelination without axonal loss). Thus, clinical correlation is required in the interpretation of this negative electrodiagnostic study for radiculopathy. David Lewis D.O. Multi Select Codes Neurology Neurology Interp Codes: 13243-07 Musc test done w/n test comp (interp) and 959 09- Nrv cndj tst 5-6 studies (interp)
== END ==
PROVIDERS: PCP Internal Medicine; Referring Provider Internal Medicine; Visit Provider Internal Medicine
DX: M79.602 Pain in left arm (principal)
CPT/HCPCS: 95886; 95909

== ENCOUNTER 2021-08-03 09:10 | Outpatient (CLI) | payer BC, SELFPAY ==
[2021-08-03 09:17] VITALS: BP 130/95; PULSE 94; RESP 16; TEMP 37.1; O2SAT 97; BMI 25.8
[2021-08-03] MEDS: 0.9% Saline Lock 10 ML Syringe IV (09:21)
[2021-08-03 09:52] VITALS: BP 126/81; PULSE 81; RESP 16; TEMP 37.1; O2SAT 96
[2021-08-03 10:44] VITALS: BP 121/68; PULSE 74; RESP 16; TEMP 37; O2SAT 96
== END 2021-08-03 10:53 | disposition home or self-care (01) ==
LOC: MS3OUT 09:11 → MS3 09:11
PROVIDERS: PCP Internal Medicine; Visit Provider Nurse Practitioner Acute Care
DX: Z23 Encounter for immunization (principal); U07.1 COVID-19
CPT/HCPCS: J7050; M0245; Q0245; A4216

== ENCOUNTER 2021-10-18 11:04 | Day surgery (SDC) | payer BC, SELFPAY ==
--- NOTE | 2021-10-04 08:08 | HP.PCM_ITS ---
History and Physical Date of Admission: 10/18/21 Pre-Op History and Physical ? HPI: The patient is a 41 year old female presenting for pre-operative visit. She is scheduled for Hysteroscopy D&C and polypectomy, for AUB, Endometrial polyp on 10/18/21. Procedure discussed along with risks, benefits and complications. Other alternatives discussed for management. Consent form signed? Yes. ? ? PAST MEDICAL HISTORY PAST MEDICAL HISTORY Diagnosis Date ? Anxiety ? ? Exercise-induced asthma ? ? Shingles 03/2013 ? right scapular region - sharp pain in her back. rash developed from back wrapping to the front. meloxicam and lyrica. does not recall valtrex or steroids ? Weight gain ? ? ? PAST SURGICAL HISTORY PAST SURGICAL HISTORY Procedure Laterality Date ? ANESTH DIAGNOSTIC ARTHROSCOPIC PROC KNEE JOINT ? 2003 ? left knee ? ESOPHAGOGASTRODUODENOSCOPY TRANSORAL DIAGNOSTIC ? 04/27/2018 ? EGD ? HYSTEROSCOPY ? 07/31/2017 ? D&C with TRUCLEAR- endometral poylp ? RPR UMBILICAL HRNA 5 YRS/> REDUCIBLE ? 06/22/2019 ? Hernia repair, umbilical >5yr ? UNSPECIFIED ORAL SURGERY PROCEDURE, BY REPORT ? ? ? multiple oral surgeries as a child ? ? ? CURRENT MEDICATIONS Current Outpatient Medications Medication Sig Dispense Refill ? rizatriptan (MAXALT) 10 mg tablet Take 1 tablet by mouth as needed. AT ONSET OF HEADACHE. MAY REPEAT AFTER 2 HOURS. DO NOT EXCEED 30 MG PER DAY. 9 tablet 5 ? cyanocobalamin, vitamin B-12, (VITAMIN B12 ORAL) Take by mouth once daily. ? ? ? gabapentin (NEURONTIN) 100 mg capsule Take 1 capsule by mouth three times daily for 90 days. Take 1 po at hs for 3 days then 1 am and hs 3 days then 1 tid, if needed increase to 3 caps 3 times a day 270 capsule 3 ? Cholecalciferol, Vitamin D3, 5,000 unit cap Take 5,000 Units by mouth once daily. ? 2 ? DULoxetine (CYMBALTA) 60 mg capsule Take 60 mg by mouth once daily. ? ? ? albuterol HFA (VENTOLIN HFA) 90 mcg/actuation inhaler Inhale 2 Puffs as instructed every 4 hours as needed for Wheezing/Shortness of Breath. 1 Inhaler 0 ? multivitamin tablet Take 1 tablet by mouth once daily. ? 0 ? No current facility-administered medications for this visit. ? ? ALLERGIES: Amoxicillin, Penicillins, Sulfa (Sulfonamide Antibiotics), and Zithromax [Azithromycin] ? PERSONAL HISTORY: SOCIAL HISTORY Social History ? Tobacco Use ? Smoking status: Never Smoker ? Smokeless tobacco: Never Used Vaping Use ? Vaping Use: Never used Substance Use Topics ? Alcohol use: Yes ? ? Comment: rarely mild social ? Drug use: No ? FAMILY HISTORY: FAMILY HISTORY FAMILY HISTORY Problem Relation Age of Onset ? Hypertension Mother ? ? Thyroid Mother ? ? hypothyroid ? other (hypercholesterolemia) Mother ? ? Ovarian cancer Maternal Grandmother ? ? large tumor but didn't spread- benign ? Thyroid Maternal Grandmother ? ? other (renal failure) Maternal Grandmother ? ? Diabetes Maternal Grandfather ? ? other (pancreatic cancer) Maternal Grandfather ? ? Diabetes Paternal Grandmother ? ? Diabetes Paternal Uncle ? ? Hypertension Maternal Uncle ? ? x2 ? ? REVIEW OF SYMPTOMS: negative except as noted above PHYSICAL EXAMINATION: ? VITALS: Blood pressure 126/80, weight 180 lb (81.6 kg), last menstrual period 08/07/2021. ? GENERAL: The patient is well nourished, well hydrated in no acute distress. , The patient is oriented to time, place, and person. NECK: full range of motion NEURO: A&O x 3 ? IMPRESSION: AUB with endometrial polyp ? PLAN: Hysteroscopy, D&C, polypectomy ? Pt has been counseled on risks/benefits and alternatives of surgery including b ut not limited to anesthesia, bleeding, infection, uterine perforation with subsequent injury to pelvic structures including bowel, bladder, ureters and vessels. Pt wishes to proceed with surgery at this time. ? No covid testing needed- had monoclonal abx 08/03/21 will get second dose vaccine after 3mo ? PRE OP and post op instructions reviewed ? ? I have reviewed and updated past medical and surgical history, medications and allergies Zayra Taylor MD ?4:44 PM Office Visit on 10/03/2021 Office Visit on 10/03/2021 Note shared with patient
[2021-10-18] VITALS (7 sets, daily range): BP systolic 121–134; BP diastolic 77–87; PULSE 60–71; RESP 16; TEMP 36.3–36.9; O2SAT 99–100; BMI 28.8
--- NOTE | 2021-10-18 | EMB_PTH ---
PATIENT: MELISSA KENNEY LOC: [facility] [place] U#:[id number] AGE/SX: 41/F ROOM: RE10/18/[address]: Dr. Zayra Oliva, MDDOB: 1980 BED: DIS: 10/18/2021 SPEC #: [id number] RECD: 10/19/21 07:02 STATUS: LAZ ARYAN #: [id number] KELLY: 10/18/21 00:[address]: Zayra Oliva DEPT: SURGICAL PATHOLOGY RECD BY: Corbin Ramos ENTERED: 10/19/21 10:06 SP TYPE: ENDOM BX/C OTHR DR: Dr. Lucila Vincent DO Tissues: Endometrium, NOS Procedures: Surgery Specimen Level IV HEADER OPERATION: Hysteroscopy, D & C, polypectomy, Symphion PRE-OP DIAGNOSIS: Abnormal uterine bleeding, endometrial polyp TISSUE SUBMITTED: Endometrial curettings MICROSCOPIC DIAGNOSIS Endometrium, curettings: Transition endometrium. AM:anali 10/22/2021 MICROSCOPIC DESCRIPTION Slides are reviewed. GROSS DESCRIPTION Received in fixative is one container labeled with the patient's name and designated endometrial curettings. The specimen consists of multiple irregular fragments of castellano soft tissue that in aggregate measure 3 x 2.5 x 0.2 cm. The specimen is totally submitted in one cassette. / SJ:anali 10/19/2021 TC:5 CPT: 61077
[2021-10-18] MEDS: 0.9% Normal Saline 1,000 ML 150 ML IV ×2 (11:50→14:11)
[2021-10-18 11:57] LABS: Internal QC Validated? YES +Cl - CLEAR BKGD; Pregnancy, Urine Negative Negative
--- NOTE | 2021-10-18 12:05 | DCINST_ITS ---
Discharge Instructions Procedure D&C Diet Discharge Diet: No restrictions Activity May resume sexual activity in: 1 week Dressing / Incision Call your doctor if you observe: Fever of 101 or Higher, Inability to urinate, Using more than 1 pad per hour and Uncontrolled pain Follow Up Care Please Follow Up With: Zayra Oliva MD When: 1-2 weeks post OP if you need an appointment please call [phone] Test Results: Test results from this visit will be discussed in further detail at your follow-up appointment, if applicable. Discharge Plan Admission Attending Provider: Zayra Oliva Primary Care Provider: Lucila Vincent Discharge Orders/Prescriptions Prescriptions: No Action gabapentin [Neurontin] 100 mg capsule 300 mg PO DAILY RF: 0 duloxetine [Cymbalta] 60 mg capsule,delayed release(DR/EC) 60 mg PO DAILY RF: 0 Other Ambulatory Orders: CBC-Complete Blood Cnt No Diff (Routine) Timeframe: 20211018 Facility: [facility] - Location: Laboratory Ordered By: Dr. Zayra Oliva ,Urine (Routine) Timeframe: 20211018 Facility: [facility] - Location: Laboratory Ordered By: Dr. Antonio Araujo
--- NOTE | 2021-10-18 12:05 | PCM.OPRPT ---
Problems Associated Problem List Diagnoses (1) Abnormal uterine bleeding (AUB): (2) Endometrial polyp: Report of Operation Date of Procedure: 10/18/21 Pre-Operative Diagnosis: AUB, endometrial polyp Post-Operative Diagnosis: AUB Surgery/Procedure Performed:: Hysteroscopy, D&C Description of Surgical Findings:: normal tubal ostia, area of increased tissue at fundal aspect Surgeon: Zayra Oliva Type of Anesthesia: MAC Specimen's removed: Endometrial curettings Drains: none Estimated Blood Loss (mL): <5cc Fluids Replaced: 700 Description of Procedure: informed consent was obtained the patient was taken the operating room she was placed in supine position. She was given anesthesia. She was then placed in the [facility] where she was prepped and draped in the normal sterile fashion. Bladder drained. At this time the weighted speculum was placed in the posterior fornix of vagina. Single-tooth tenaculum was used to gently grasp the anterior lip the cervix. At this time the uterine cavity was sounded to approximately 8 cm. Gentle dilatation was performed once adequate dilatation of the cervix was achieved the hysteroscope using normal saline as a distention medium was placed. Tubal ostia visualized. Area of excessive tissue noted at fundal aspect- did not have typical polypoid appearance. Symphion resecting device used to obtain endometrial curettings and to perform curettage- also removing area of tissue at fundal aspect. Tissue will be sent to pathology for evaluation. Tenaculum removed. Good hemostasis. Instrument, lap count correct x 2. Vaginal Sweep was negative. Grafts/Implants Used: none Procedure Start Time: 12:36 Procedure Stop Time: 12:40 Admit VTE Documentation VTE Present on Admission: Yes VTE Mechan Device Prophylaxis: SCD's VTE Pharm Prophylaxis ordered?: No Reason prophylaxis not ordered:: Procedure Not Indicated
[2021-10-18 12:13] LABS: Hematocrit 44.7 % (37-47); Hemoglobin 14.8 g/dL (12.0-15.0); Mean Corp Hgb Conc 33.1 g/dL (32-36); Mean Corpuscular Hgb 31.4 pg (27.0-32.0); Mean Corpuscular Volume 94.7 fL (81-99); Mean Platelet Vol. 10.8 fl (6.2-12.0); Platelet Count 231 K/mm3 (150-450); RBC Distribution Width CV 12.5 % (11.6-14.6); RBC Distribution Width SD 43.6 fl (35.1-43.9); Red Blood Count 4.72 M/mm3 (4.2-5.4); White Blood Count 5.8 K/mm3 (4.4-11.0)
== END 2021-10-18 23:59 | disposition home or self-care (01) ==
LOC: SDC 11:10 → AC 11:14
PROVIDERS: PCP Internal Medicine; Referring Provider Obstetrics & Gynecology; Visit Provider Obstetrics & Gynecology
PROC: 0UB98ZZ Excision of Uterus, Via Natural or Artificial Opening Endoscopic (ICD-10-PCS; CPT 58558; principal; 2021-10-18 12:15)
DX: N93.9 Abnormal uterine and vaginal bleeding, unspecified (principal); F41.9 Anxiety disorder, unspecified; Z79.899 Other long term (current) drug therapy
CPT/HCPCS: 58558; 00952; 81025; 85027; 88305; J7030

== ENCOUNTER → 2022-01-08 | Outpatient (CLI) | payer BC, SELFPAY ==
--- NOTE | 2022-01-08 15:02 | VDUE_ITS ---
Reason For Study: swelling Right Proximal Right jugular vein is spontaneous, widely patent, phasic, with no intraluminal echogenicity noted. Right subclavian vein is spontaneous, widely patent, phasic, with no intraluminal echogenicity noted. Right Lower Arm Right radial vein is compressible. Right ulnar vein is compressible. Right Arm Right axillary vein is spontaneous, patent, phasic, competent, compressible and demonstrates augmentation. Right brachial vein is compressible. Right cephalic vein is compressible. Right basilic vein is compressible. Prelim faxed to [facility]. VL/Venous Duplex US, Unilateral Interpretation Summary Deep veins of the right upper extremity are patent and compressible segmentally . There is no evidence of deep vein thrombosis. The superficial veins of the right upper extr emity, the basilic and cephalic veins, are patent and compressible. There is no evidence of right upper extremity superficial thrombophlebitis involving the veins imaged. Ordering Physician: Lucila Vincent Performed By: Ruben Koroma RVT ?
== END | disposition home or self-care (01) ==
LOC: CVS 15:00
PROVIDERS: PCP Internal Medicine; Visit Provider Internal Medicine
DX: M79.89 Other specified soft tissue disorders (principal)
CPT/HCPCS: 93971

== ENCOUNTER → 2022-05-27 | Outpatient (CLI) | payer BC, SELFPAY ==
--- NOTE | 2022-05-27 08:34 | BI_ITS ---
MAMMOGRAPHY - BILATERAL SCREENING REASON FOR EXAM: Female, 42 years old. Routine annual screening examination. PERTINENT HISTORY: Non-contributory. TECHNIQUE: Digital bilateral breast nely (3D mammographic acquisition) in the CC and MLO projections. 2-D mediolateral oblique (MLO) and craniocaudad (CC) views of both breasts were obtained. CAD: Full Field Digital Mammography with Computer Added Detection was performed. COMPARISON: Comparison is made with prior study dated 05/02/2020. FINDINGS: Breast Composition: The breasts are heterogeneously dense, which may obscure small masses. There are no dominant masses or suspicious calcifications. Stable small benign-appearing bilateral axillary lymph nodes. No other significant abnormalities are identified. There has been no significant change since the prior study. BI/SCRN MAMM (CAD)W/NELY BILAT IMPRESSION: Stable bilateral screening mammogram. Yearly follow-up mammogram recommended. (A) ASSESSMENT CATEGORY: BIRADS Category 1: Negative. A letter regarding these results will be sent to the patient by the facility within 30 days. Approximately 10% of breast cancers are not detected by mammography. A normal mammogram should not delay biopsy of a clinically suspicious abnormality. [id number] Electronically Signed: Rober Norman MD at 9:38 EDT ,
== END | disposition home or self-care (01) ==
LOC: OPBI 08:33
PROVIDERS: PCP Internal Medicine; Visit Provider Internal Medicine
DX: Z12.31 Encounter for screening mammogram for malignant neoplasm of breast (principal)
CPT/HCPCS: 77063; 77067

== ENCOUNTER → 2022-08-17 | Outpatient (CLI) | payer BC, SELFPAY ==
--- NOTE | 2022-08-17 07:55 | US_ITS ---
PROCEDURE: Limited ABDOMINAL ULTRASOUND, RIGHT UPPER QUADRANT REASON FOR EXAM: Female, 42 years old. Nausea and abdominal pain. TECHNIQUE: Transabdominal TECHNICAL QUALITY: Adequate. COMPARISON: None. FINDINGS: Liver: Normal size of the liver. The liver measures 15.3 cm. There is normal echogenicity of the liver. The bile ducts are within normal limits. There is hepatic color flow. There is portal color flow. There is no demonstrated mass lesion. Gallbladder: Normal distended gallbladder. The gallbladder wall measures 1.5 mm. There is a negative sonographic Martínez''s sign. There is no pericholecystic fluid. There are no gallstones. Common Bile Duct (C.B.D.): Normal size C.B.D. The common bile duct measures 2.5 mm. Pancreas: Normal size of the head, body and tail of the pancreas. There is normal echogenicity of the pancreas. There is no demonstrated pancreatic mass or cyst. Right Kidney: Normal size of the right kidney. The right kidney measures 12.1 cm. Normal renal cortex. The right cortex measures 1.1 cm. There is no demonstrated renal mass or cyst. There are no demonstrated renal calculi. There is no hydronephrosis. There is no ascites. US/Abdomen Limited IMPRESSION: Unremarkable examination. Electronically Signed: James Peacock MD at 15:26 EST ,
== END | disposition home or self-care (01) ==
PROVIDERS: PCP Internal Medicine; Visit Provider Internal Medicine
DX: R10.10 Upper abdominal pain, unspecified (principal)
CPT/HCPCS: 76705

== ENCOUNTER → 2022-12-16 | Outpatient (CLI) | payer BC, SELFPAY ==
--- NOTE | 2022-12-16 07:27 | CT_ITS ---
STUDY: CT ABDOMEN AND PELVIS WITH CONTRAST REASON FOR EXAM: Female, 42 years old. ABD PAIN, RECURRENT UTI, HX OF STONES. Prior umbilical hernia repair. RADIATION DOSAGE (If Supplied By Facility): CTDIvol = ( 18.78 ) mGy, DLP = ( 437.25 ) mGycm TECHNIQUE: Transaxial images were obtained from the dome of the diaphragm to the symphysis pubis without oral contrast. IV 100mL Isovue-370 was administered. Sagittal and coronal images were reconstructed. Individualized dose optimization techniques were used for this CT. COMPARISON: Comparison is made with prior examination dated December 01, 2018. FINDINGS: The visualized lung bases are unremarkable. The visualized portions of the heart are within normal limits. Normal liver. Normal gallbladder and extrahepatic biliary system. Normal spleen. Normal pancreas. Normal bilateral adrenal glands. Normal right kidney. Normal left kidney. Normal visualized stomach. Normal small intestine. Normal colon. The appendix is visualized and appears normal. Normal abdominal aorta. Normal inferior vena cava. There is borderline retroperitoneal lymphadenopathy with enlarged nodes no greater than 10mm in the short axis diameter. Normal urinary bladder. There is an enlarged heterogeneous uterus compatible with the fibroids. There is a 3.7 cm x 4.8 cm fibroid in the fundal portion of the uterus. There is a small umbilical hernia containing fat. Normal osseous structures. CT/Abdomen/Pelvis W IV Cont ONLY IMPRESSION: Fibroid uterus. Electronically Signed: Rober Norman MD at 12:33 EDT ,
== END | disposition home or self-care (01) ==
PROVIDERS: PCP Internal Medicine; Referring Provider Urology; Visit Provider Urology
DX: R10.30 Lower abdominal pain, unspecified (principal); Z87.440 Personal history of urinary (tract) infections; Z87.442 Personal history of urinary calculi
CPT/HCPCS: 74177; Q9967

== ENCOUNTER → 2023-06-18 | Outpatient (CLI) | payer BC, SELFPAY ==
--- NOTE | 2023-06-18 10:50 | BI_ITS ---
MAMMOGRAPHY - BILATERAL SCREENING REASON FOR EXAM: Female, 43 years old. Routine annual screening examination. PERTINENT HISTORY: Non-contributory. TECHNIQUE: Digital bilateral breast nely (3D mammographic acquisition) in the CC and MLO projections. 2-D mediolateral oblique (MLO) and craniocaudad (CC) views of both breasts were obtained. CAD: Full Field Digital Mammography with Computer Added Detection was performed. COMPARISON: Comparison is made with prior study dated May 27, 2022 and May 02, 2020. FINDINGS: Breast Composition: The breasts are extremely dense, which lowers the sensitivity of mammography. There are no dominant masses or suspicious calcifications. Stable small benign-appearing bilateral axillary lymph nodes. No other significant abnormalities are identified. There has been no significant change since the prior study. BI/SCRN MAMM (CAD)W/NELY BILAT IMPRESSION: Stable bilateral screening mammogram. Yearly follow-up mammogram recommended. (A) ASSESSMENT CATEGORY: BIRADS Category 2: Benign. A letter regarding these results will be sent to the patient by the facility within 30 days. Approximately 10% of breast cancers are not detected by mammography. A normal mammogram should not delay biopsy of a clinically suspicious abnormality. [id number] Electronically Signed: Rober Norman MD at 12:53 EST ,
== END | disposition home or self-care (01) ==
LOC: OPBI 10:50
PROVIDERS: PCP Internal Medicine; Referring Provider Internal Medicine; Visit Provider Internal Medicine
DX: Z12.31 Encounter for screening mammogram for malignant neoplasm of breast (principal)
CPT/HCPCS: 77063; 77067

== ENCOUNTER 2023-10-17 08:00 | Outpatient (RCR) | payer BC, SELFPAY ==
--- NOTE | 2023-09-10 07:41 | HP.OTEVAL_ITS ---
Patient's Visit Information Visit Information Visit Information: MELISSA KENNEY is a 43 year old F, referred to Occupational Therapy by MARTINA SANCHES, with a diagnosis of TFCC. 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 Cole, MRI showed tear and went to [facility] for hand group- ( sx was on [facility]) with - Sx Jul.17 with TFCC repair pt states two week later she was place in wrist brace. states she is doing ok. right handed pt states some tingling but not bad. pt would like to return to her PLOF with ADLs and IADLs. Pain right wrist: Current Pain Intensity: 1 Pain Intensity Range: 0 and 2 ROM Forearm: right supination 30* left WNL Wrist: right 20/ 15 left 60/65 ROM Comments: right UD 10 [address] 15 left UD WNL Strength Gasoline Attendant: right NT left 75# Lateral Pinch: right NT left 16# Tripod Pinch: right NT left 16# Strength Comments: will test right at later date Edema Wrist: right 16.5 left 15 cm Other: MCP right 19cm left 18cm Sensation Sensation Comments: states some tingling Quick DASH-Disab of Arm,Shoulder& Hand Quick DASH Score: 53.5700 Goals Goal:100% adherence to protocol: Yes Comment: TFCC repair guidelines Goal:Daily scar massage when approriate: Yes Goal:ROM equal to unaffected hand: Yes Goal:Gasoline Attendant/Pinch strength at least 75% of unaffected hand: Yes Goal:No pain with affected hand use: Yes Goal:PIP Circumferences equal to unaffected hand: Yes Goal:Full use of affected hand in daily activities including work: Yes Rehabilitation General Assessment: s/p 6 weeks and 4 days from TFCC repair- Due to newly healing structures pt is limited with her functional ROM limiting use of right UE with IND with ADls and IADLS. Pt demo need for OT services 1-2x week for 8 weeks. to return to her PLOF. Today therapist ed. pt on AROM ex, edema control and use of heat/ice as needed. pt demo understanding and agree to POC. Rehabilitation Potential: Good Anticipated Interventions Anticipated Interventions: A/AAROM/PROM, Strengthening, Scar Care, Triggerpoint Release, Modalities, Orthoses, Joint Protection/Energy Conservation, Ergonomic Education, Fine Motor Coord/Milo, Education re assistive Equipment, Education re Diagnosis and Home Program Visit Plan Frequency: 1-2x /Week Duration: 6 Weeks TEXT: Thank you for the opportunity to evaluate your patient. For Medicare and Medicare HMO plans, please review the plan of care and approve it. It will need to be FAXED BACK to us at [phone] for Medicare purposes. Please let me know if there are questions or concerns regarding this plan of care. Physician Signature: Date:
--- NOTE | 2023-09-10 08:30 | OTREVAL_ITS ---
Re-Evaluation Intro: MARTINA SANCHES, It has been my pleasure to treat MELISSA KENNEY over the last 2 visits for TFCC. Please see the progress note below for an update on the occupational therapy plan of care! Subjective Subjective: pt with brace on: states she has brace off when sitting sleeping in brace. working with brace on trying to type without int Objective Objective/Function: right forearm supination 40* increase from 30* right wrist ROM 35/25 increase from 20/15 right wrist UD 15* increase from 10* right wrist RD 15* WFL same as eval pt progressing well with ROM Plan Plan Frequency: 1-2x /Week Duration: 6 Weeks Plan: will cont. with POC following TFCC repair guidelines Goals Goals Patient Goals: Regain Mobility and Use Hand/Wrist/Arm Normally Again Goal:100% adherence to protocol: Yes Goal:Daily scar massage when approriate: Yes Goal:ROM equal to unaffected hand: Yes Goal:Small Package And Bundle Sorter Clerk/Pinch strength at least 75% of unaffected hand: Yes Goal:No pain with affected hand use: Yes Goal:PIP Circumferences equal to unaffected hand: Yes Goal:Full use of affected hand in daily activities including work: Yes Anticipated Interventions Anticipated Interventions Anticipated Interventions: A/AAROM/PROM, Strengthening, Scar Care, Triggerpoint Release, Modalities, Orthoses, Joint Protection/Energy Conservation, Ergonomic Education, Fine Motor Coord/Milo, Education re assistive Equipment, Education re Diagnosis and Home Program Re-Evaluation Ending Re-evaluation ending: Please do not hesitate to contact me at [phone] by phone or if you have questions or concerns regarding this new plan of care! Sincerely, Olya Chery, OTR/L, CHT
--- NOTE | 2023-10-17 08:31 | OTREVAL_ITS ---
Re-Evaluation Intro: MARTINA SANCHES, It has been my pleasure to treat MELISSA KENNEY over the last 5 visits for TFCC. Please see the progress note below for an update on the occupational therapy plan of care! Subjective Subjective: pt arrives 13 weeks s/p from TFCC pt states only some motions are uncomfortable- like picking up cup from top, cleaning barn out and sometimes putting bag down. pt states 80 % of the time she does not notice her wrist. so 20% of the time her wrist stops her from doing what she wants or she has to think about. Objective Objective/Function: right wrist 55/45 increase from 40/25 right sup 65 pron 65 ( tightness) right provider network mgr strength 25# ( discomfort) right lateral pinch 12# right tripod pinch 10# with some pain pt states she her IF PIP still feels sore all other fingers feel better- pt has initiated light strengthen to her tolerance, wrist proprioceptive ex pt making gains with therapy Plan Plan Plan: will cont. with POC following TFCC repair guidelines Goals Goals Patient Goals: Regain Mobility and Use Hand/Wrist/Arm Normally Again Goal:100% adherence to protocol: Yes Goal:Daily scar massage when approriate: Yes Goal:ROM equal to unaffected hand: Yes Goal:Silverware Buffing Machine Operator/Pinch strength at least 75% of unaffected hand: Yes Goal:No pain with affected hand use: Yes Goal:PIP Circumferences equal to unaffected hand: Yes Goal:Full use of affected hand in daily activities including work: Yes Anticipated Interventions Anticipated Interventions Anticipated Interventions: A/AAROM/PROM, Strengthening, Scar Care, Triggerpoint Release, Modalities, Orthoses, Joint Protection/Energy Conservation, Ergonomic Education, Fine Motor Coord/Milo, Education re assistive Equipment, Education re Diagnosis and Home Program Re-Evaluation Ending Re-evaluation ending: Please do not hesitate to contact me at [phone] by phone or if you have questions or concerns regarding this new plan of care! Sincerely, Olya Chery, OTR/L, CHT
== END 2023-10-17 19:00 | disposition home or self-care (01) ==
LOC: OT 08:00
PROVIDERS: PCP Internal Medicine; Referring Provider Physician Assistant Medical; Visit Provider Physician Assistant Medical
DX: M24.131 Other articular cartilage disorders, right wrist (principal); Z98.890 Other specified postprocedural states
CPT/HCPCS: 97110; 97140; 97166; 97530

== ENCOUNTER → 2023-12-24 | Outpatient (CLI) | payer BC, SELFPAY ==
--- NOTE | 2023-12-24 16:48 | RAD_ITS ---
STUDY: X-RAY CHEST REASON FOR EXAM: Female, 43 years old. cough -- cough TECHNIQUE: PA and lateral views of the chest. COMPARISON: None. FINDINGS: The lungs are clear and expanded. There is no demonstrated pleural abnormality. Normal size heart. Normal mediastinum and elke. Normal visualized pulmonary arteries. Normal visualized aortic arch and descending thoracic aorta. Normal visualized thoracic spine. Normal visualized ribs, clavicles, and shoulders. There is no demonstrated abnormality of the visualized soft tissue structures of the upper abdomen. RAD/Chest PA and Lateral IMPRESSION: Normal x-ray examination of the chest. Electronically Signed: Fracisco Fenton MD at 19:24 EDT ,
== END | disposition home or self-care (01) ==
LOC: RAD 16:45
PROVIDERS: PCP Internal Medicine; Referring Provider Internal Medicine; Visit Provider Internal Medicine
DX: R05.9 Cough, unspecified (principal)
CPT/HCPCS: 71046

== ENCOUNTER → 2023-12-25 | Outpatient (CLI) | payer BC, SELFPAY ==
[2023-12-25 10:28] LABS: CRP, High Sensitivity Cardiac 0.92 mg/L; Troponin-I HS < 3 pg/mL (3.0-54.0)
[2023-12-25 10:47] LABS: Hematocrit 44.3 % (37-47); Hemoglobin 14.1 g/dL (12.0-15.0); Mean Corp Hgb Conc 31.8 g/dL (32-36); Mean Corpuscular Hgb 29.1 pg (27.0-32.0); Mean Corpuscular Volume 91.5 fL (81-99); Mean Platelet Vol. 11.4 fl (6.2-12.0); Platelet Count 255 K/mm3 (150-450); RBC Distribution Width CV 12.2 % (11.6-14.6); Red Blood Count 4.84 M/mm3 (4.2-5.4); White Blood Count 5.4 K/mm3 (4.4-11.0)
[2023-12-25 10:48] LABS: Erythrocyte Sedimentation Rate 8 mm/hr (0-30)
== END | disposition home or self-care (01) ==
LOC: LABSPEC 10:02
PROVIDERS: PCP Internal Medicine; Referring Provider Internal Medicine; Visit Provider Internal Medicine
DX: R07.89 Other chest pain (principal); R06.02 Shortness of breath
CPT/HCPCS: 84484; 85027; 85652; 86141

== ENCOUNTER → 2024-08-06 | Outpatient (CLI) | payer BC, SELFPAY ==
--- NOTE | 2024-08-06 14:37 | BI_ITS ---
MAMMOGRAPHY - BILATERAL SCREENING 3-D TOMOSYNTHESIS REASON FOR EXAM: Female, 44 years old. screening PERTINENT HISTORY: No significant family history. TECHNIQUE: 2-D mammograms and 3-D Tomosynthesis of the breast (s) were performed. CAD was performed. COMPARISON: 06/18/2023 FINDINGS: The breast composition is Extermely dense tissue. Scattered benign calcifications are seen. No dense spiculated masses or suspicious microcalcifications are identified. No architectural distortion is identified. There is no skin thickening or retraction. There has been no significant change since the prior study. BI/SCRN MAMM (CAD)W/NELY BILAT IMPRESSION: No mammographic signs of malignancy. Routine yearly mammograms recommended. ASSESSMENT CATEGORY: BIRADS Category 1: Negative. A letter regarding these results will be sent to the patient by the facility within 30 days. FOLLOW UP RECOMMENDATION: Yearly follow up mammogram recommended. (A) Approximately 10% of breast cancers are not detected by mammography. A normal mammogram should not delay biopsy of a clinically suspicious abnormality. Electronically Signed: Fracisco Fenton MD at 20:07 EST ,
== END | disposition home or self-care (01) ==
PROVIDERS: PCP Internal Medicine; Referring Provider Internal Medicine; Visit Provider Internal Medicine
DX: Z12.31 Encounter for screening mammogram for malignant neoplasm of breast (principal)
CPT/HCPCS: 77063; 77067

== ENCOUNTER → 2025-06-23 | Outpatient (CLI) | payer BC, SELFPAY ==
[2025-06-23 14:06] LABS: Red Blood Cells-Urine 0 SEEN /hpf (0-5)
[2025-06-23 14:15] LABS: Color, Urine Yellow (Yellow); Glucose, Dipstick Normal (Normal); Ketone-Dipstick 5 mg/dl (Negative); Leukocyte Esterase-Dipstick 25 /ul (Negative); Nitrite-Dipstick Negative (Negative); Occult Blood-Urine Negative /ul (Negative); Protein-Dipstick 30 mg/dl (Negative); Specific Gravity, Urine 1.025 (1.002-1.030)
[2025-06-23 14:16] LABS: Hematocrit 42.7 % (37-47); Hemoglobin 13.8 g/dL (12.0-15.0); Immature Granulocytes Count 0.020 X10^3/uL (0.0-0.0); Mean Corp Hgb Conc 32.3 g/dL (32-36); Mean Corpuscular Volume 92.2 fL (81-99); Mean Platelet Vol. 12.3 fl (6.2-12.0); NRBC Flagged by Analyzer 0 % (0-5); Platelet Count 157 K/mm3 (150-450); RBC Distribution Width CV 13.2 % (11.6-14.6); RBC Distribution Width SD 45.0 fl (35.1-43.9); Red Blood Count 4.63 M/mm3 (4.2-5.4); White Blood Count 6.8 K/mm3 (4.4-11.0)
[2025-06-23 14:17] LABS: Urine Bilirubin Dipstick 1 mg/dL (Negative)
[2025-06-23 14:27] LABS: Squamous Epithelial Cells - UA 5-10 SEEN /hpf (5-10)
[2025-06-23 14:28] LABS: Mucous, Urine 2+ /hpf (<or=2+)
[2025-06-23 14:46] LABS: Creatinine, Urine (random) 363.00 mg/dL (28.00-217.00); Microalbumin,Random Urine 49.1 mg/L (<20 mg/L)
[2025-06-23 14:56] LABS: AST(SGOT) 26 U/L (<=31); Alanine Aminotransfer ALT/SGPT 38 U/L (<=34); Albumin, Serum 4.1 g/dL (3.5-5.0); Alkaline Phosphatase 83 U/L (35-104); Anion Gap 10 (5-15); BUN 13 mg/dL (4-19); BUN/Creat Ratio 14.5 RATIO (10-20); Calcium,Total 9.2 mg/dL (7.6-11.0); Carbon Dioxide 24.0 mmol/L (21.0-32.0); Chloride 104 mmol/L (98-108); Globulin 2.7 g/dL (2.2-4.2); Glucose 110 mg/dL (70-99); Potassium 4.3 mmol/L (3.3-5.1); Vitamin B12 535 pg/mL (180-914)
[2025-06-23 14:59] LABS: FOLATES,SERUM (FOLIC ACID) 9.06 ng/mL (4.60-34.80)
== END | disposition home or self-care (01) ==
LOC: LABSPEC 12:35
PROVIDERS: PCP Internal Medicine; Referring Provider Internal Medicine; Visit Provider Internal Medicine
DX: R73.01 Impaired fasting glucose (principal); R79.89 Other specified abnormal findings of blood chemistry
CPT/HCPCS: 80053; 81001; 82043; 82570; 82607; 82746; 85025

== ENCOUNTER → 2025-07-22 | Outpatient (CLI) | payer BC, SELFPAY ==
[2025-07-22 12:19] LABS: Hematocrit 43.7 % (37-47); Hemoglobin 14.2 g/dL (12.0-15.0); Immature Granulocytes Count 0.020 X10^3/uL (0.0-0.0); Mean Corp Hgb Conc 32.5 g/dL (32-36); Mean Corpuscular Volume 92.6 fL (81-99); Mean Platelet Vol. 11.2 fl (6.2-12.0); NRBC Flagged by Analyzer 0 % (0-5); Platelet Count 234 K/mm3 (150-450); RBC Distribution Width CV 13.0 % (11.6-14.6); RBC Distribution Width SD 44.2 fl (35.1-43.9); Red Blood Count 4.72 M/mm3 (4.2-5.4); White Blood Count 5.7 K/mm3 (4.4-11.0)
[2025-07-22 12:42] LABS: AST(SGOT) 19 U/L (<=31); Alanine Aminotransfer ALT/SGPT 21 U/L (<=34); Albumin, Serum 4.3 g/dL (3.5-5.0); Alkaline Phosphatase 71 U/L (35-104); Anion Gap 9 (5-15); BUN 16 mg/dL (4-19); BUN/Creat Ratio 20.8 RATIO (10-20); CRP < 3.00 mg/L (0.0-3.0); Calcium,Total 9.7 mg/dL (7.6-11.0); Carbon Dioxide 26.0 mmol/L (21.0-32.0); Chloride 103 mmol/L (98-108); Globulin 3.2 g/dL (2.2-4.2); Glucose 102 mg/dL (70-99); Potassium 4.2 mmol/L (3.3-5.1)
[2025-07-25 14:08] LABS: ANTINUCLEAR ANTIBODIES DIRECT Negative (Negative); CRP, High Sensitivity 2.08 mg/L (0.00-3.00)
[2025-07-25 15:08] LABS: EBV Acute VCA IgM 67.3 U/mL (0.0-35.9); EBV-VCA IgG 207.0 U/mL (0.0-17.9); Lyme Scn Total Ab w/Rflx Negative (Negative)
== END | disposition home or self-care (01) ==
LOC: CIMLAB 09:39
PROVIDERS: PCP Internal Medicine; Referring Provider Internal Medicine; Visit Provider Internal Medicine
DX: M25.50 Pain in unspecified joint (principal); R82.998 Other abnormal findings in urine
CPT/HCPCS: 36415; 80053; 85025; 85652; 86038; 86140; 86141; 86200; 86431; 86618; 86664; 86665; 87086

== ENCOUNTER → 2025-08-01 | Outpatient (CLI) | payer BC, SELFPAY ==
--- NOTE | 2025-08-01 14:29 | US_ITS ---
PROCEDURE: PELVIC W/ TRANSVAGINAL 08/01/2025 REASON FOR EXAM: LEFT PELVIC PAIN FOR 6 MONTHS. TECHNIQUE: Procedure Code: [id number] Modality: US Procedure: PELVIC W/ TRANSVAGINAL. COMPARISON: ULTRASOUND ABDOMEN LIMITED DATED 08/17/2022. FINDINGS: Measurements: Uterus: 10.9 x 7.6 x 6.4 cm with a volume of 280 mL Endometrial Thickness: 0.17 cm Right Ovary: 3.1 x 3.0 x 1.3 cm with a volume of 6.3 mL. Left Ovary: 2.8 x 2.6 x 2.5 cm with a volume of 9.4 mL. Uterus: Retroverted. A heterogeneous mass projecting from the body of the uterus measuring 4.9 x 5.9 x 5.8 cm. Cervix: Nabothian cyst. Endometrium: Hyperechoic. Right ovary: 3.1 x 3.0 x 1.3 cm. Left ovary: 2.8 x 2.6 x 2.5 cm. Other: No other significant findings. US/Pelvic w/ Transvaginal IMPRESSION: Uterine leiomyoma. Small nabothian cyst. Retroverted uterus. Reading Location: [place] [id number]
== END | disposition home or self-care (01) ==
LOC: US 14:28
PROVIDERS: PCP Internal Medicine; Referring Provider Internal Medicine; Visit Provider Internal Medicine
DX: R10.20 Pelvic and perineal pain unspecified side (principal)
CPT/HCPCS: 76830; 76856